=== PATIENT | male | born 1990 | race Caucasian/White ===

== ENCOUNTER 2017-03-18 14:57 | Emergency (ER) | payer OTHER ==
[~2017-03-18] VITALS: Ht 175.3 cm; Wt 75.0 kg
[2017-03-18] MEDS ORDERED: AMBI5TAB PO (15:23)
[2017-03-18] MEDS ORDERED: TYLE325T5 PO (15:23)
[2017-03-18] MEDS ORDERED: EFFE150C PO (15:23)
[2017-03-18] MEDS ORDERED: FLUORESCEIN OPHTH 1 MG STRIP OD ONE (15:45)
[2017-03-18] MEDS ORDERED: ZIRG0.152 OD (16:06)
[2017-03-18 16:39] VITALS: BP 145/86
== END 2017-03-18 16:50 | disposition home or self-care (01) ==
LOC: M ED 14:57
DX: B00.52 Herpesviral keratitis (principal); F41.9 Anxiety disorder, unspecified; F32.9 Major depressive disorder, single episode, unspecified; F17.200 Nicotine dependence, unspecified, uncomplicated; Z86.19 Personal history of other infectious and parasitic diseases; Z79.899 Other long term (current) drug therapy